=== PATIENT | male | born 1955 | race Caucasian/White ===

== ENCOUNTER 2020-07-24 12:58 | Inpatient (IN) | payer OTHER, MEDICAID ==
[~2020-07-24] VITALS: Ht 162.6 cm; Wt 77.6 kg
[~2020-07-24 12:58] MED LIST: ASPI-1497 PO; CLOP75TA33 PO; LISI20TA31 PO; PROVASTATIN PO
[2020-07-24] MEDS ORDERED: ROSU20TA2 PO (13:13)
[2020-07-24] MEDS ORDERED: TAMS-11 PO (13:13)
[2020-07-24] MEDS ORDERED: OLME1TAB92 PO (13:13)
[2020-07-24] MEDS ORDERED: XIGDUO (13:13)
[2020-07-24] MEDS ORDERED: insulin (13:13)
[2020-07-24 14:08] LABS: BASOPHILS % 0.2 % (0.0-2.0); EOSINOPHILS % 0.7 % (0.0-5.0); HEMATOCRIT. 43.7 % (42.0-52.0); HEMOGLOBIN. 14.8 g/dL (14.0-18.0); MEAN CORPUSCULAR HEMOGLOBIN 31.3 pg (28.0-32.0); MEAN CORPUSCULAR VOLUME 92.1 fL (80.0-94.0); MEAN PLATELET VOLUME 7.6 fl (7.4-10.4); MONOCYTES % 4.2 % (2.0-8.0); NEUTROPHILS % 84.9 % (40.0-76.0); PLATELET 202 x1000/uL (130-400); RED BLOOD CELL COUNT 4.74 mill/uL (4.7-6.1); RED CELL DISTRIBUTION WIDTH 13.1 % (11.6-14.6)
[2020-07-24 14:15] LABS: CHLORIDE 107 mEq/L (98-107)
[2020-07-24] MEDS ORDERED: MECLIZINE 25MG TABLET PO ONE (14:15)
[2020-07-24] MEDS ORDERED: SODIUM CHLORIDE 0.9% 1,000 ML IV ONE (14:15)
[2020-07-24 14:19] LABS: ETHANOL BLOOD < 10 mg/dL
[2020-07-24] MEDS ORDERED: MECL-159 MT (15:18)
[2020-07-24] MEDS ORDERED: ASPIRIN 325MG EC TABLET PO ONE (22:15)
[2020-07-25] VITALS (7 sets, daily range): BP systolic 86–128; BP diastolic 52–74
[2020-07-25] MEDS ORDERED: CLONIDINE 0.1MG TABLET PO PRN (02:30)
[2020-07-25] MEDS ORDERED: DEXTROSE 50% WATER 50ML SYRINGE IV PRN (02:30)
[2020-07-25] MEDS ORDERED: ACETAMINOPHEN 325MG TABLET PO PRN (02:30)
[2020-07-25] MEDS ORDERED: NON FORMULARY PATIENT HOME MED XX SCH (02:30)
[2020-07-25] MEDS: BLOOD SUGAR DIAGNOSTIC STRIP TEST SCH ×4 (07:09→21:04)
[2020-07-25 07:27] LABS: BASOPHILS % 0.2 % (0.0-2.0); EOSINOPHILS % 2.3 % (0.0-5.0); HEMATOCRIT. 41.7 % (42.0-52.0); LYMPHOCYTES % 31.5 % (20.0-50.0); MEAN CORPUSCULAR HEMOGLOBIN 31.3 pg (28.0-32.0); MEAN CORPUSCULAR VOLUME 93.2 fL (80.0-94.0); MEAN PLATELET VOLUME 7.5 fl (7.4-10.4); PLATELET 190 x1000/uL (130-400); RED BLOOD CELL COUNT 4.48 mill/uL (4.7-6.1); RED CELL DISTRIBUTION WIDTH 13.6 % (11.6-14.6)
[2020-07-25] MEDS: INSULIN LISPRO 100 UNITS/ML SUBCUT SCH ×4 (07:50→21:19)
[2020-07-25 07:51] LABS: CHLORIDE 107 mEq/L (98-107)
[2020-07-25] MEDS ORDERED: *PATIENT'S OWN MEDICATION STORAGE XX SCH (08:00)
[2020-07-25 08:07] LABS: LDL CHOLESTEROL 65 mg/dL (5-100)
[2020-07-25 08:09] LABS: T4 FREE 0.94 ng/dL (0.76-1.46)
[2020-07-25 08:10] LABS: HDL CHOLESTEROL 38 mg/dL (40-59)
[2020-07-25] MEDS: ASPIRIN 81MG EC TABLET PO SCH (08:54)
[2020-07-25] MEDS: TAMSULOSIN HCL 0.4MG SR CAPSULE PO SCH (08:55)
[2020-07-25] MEDS ORDERED: HYDROCHLOROTHIAZIDE 25MG TABLET PO SCH (09:00)
[2020-07-25] MEDS ORDERED: LOSARTAN POTASSIUM 100 MG TABLET PO SCH (09:00)
[2020-07-25] MEDS ORDERED: MECLIZINE 12.5MG TABLET PO PRN (11:15)
[2020-07-25 12:25] LABS: D-DIMER 0.2 mg/L FEU (<0.50); INR 1.1; PROTHROMBIN TIME 11.4 sec (9.6-11.0)
[2020-07-25] MEDS: LORATADINE 10MG TABLET PO SCH (12:47)
[2020-07-25 13:44] LABS: CLARITY URINE CLEAR (CLEAR); COLOR URINE YELLOW (YELLOW); KETONES URINE NEGATIVE (NEGATIVE); LEUKOCYTE ESTERASE URINE NEGATIVE (NEGATIVE); NITRITE URINE NEGATIVE (NEGATIVE); OCCULT BLOOD URINE NEGATIVE (NEGATIVE); PH URINE 5.5 (4.5-8.0); PROTEIN URINE NEGATIVE (NEGATIVE); SPECIFIC GRAVITY URINE 1.042 (1.005-1.030)
[2020-07-25 13:53] LABS: *AMPHETAMINES SCREEN URINE NEGATIVE (NEGATIVE); *BARBITURATES SCREEN URINE NEGATIVE (NEGATIVE); *BENZODIAZEPINES SCREEN URINE NEGATIVE (NEGATIVE); *COCAINE SCREEN URINE NEGATIVE (NEGATIVE)
[2020-07-25 13:54] LABS: CANNABINOID URINE SCREEN NEGATIVE (NEGATIVE); METHADONE URINE SCREEN NEGATIVE (NEGATIVE); OPIATES URINE SCREEN NEGATIVE (NEGATIVE); PHENCYCLIDINE URINE SCREEN NEGATIVE (NEGATIVE)
[2020-07-25] MEDS ORDERED: IPRATROPIUM/ALBUTEROL 0.5-3(2.5)MG/3ML NEB HHN PRN (16:15)
[2020-07-25] MEDS ORDERED: BISACODYL 10MG SUPP PR PRN (16:15)
[2020-07-25] MEDS ORDERED: LORAZEPAM 2MG/ML CPJ IV PRN (16:15)
[2020-07-25] MEDS ORDERED: HYDRALAZINE 20MG/ML VIAL IV PRN (16:15)
[2020-07-25] MEDS ORDERED: HYDROCODONE/ACETAMINOPHEN 5/325MG TABLET PO PRN (16:15)
[2020-07-25] MEDS ORDERED: ONDANSETRON HCL 4MG/2ML INJ IV PRN (16:15)
[2020-07-25] MEDS ORDERED: DIPHENHYDRAMINE 50MG/ML VIAL IV PRN (16:15)
[2020-07-25] MEDS: SODIUM CHLORIDE 0.45% 1,000 ML IV SCH (17:29)
[2020-07-25] MEDS: ENOXAPARIN 40MG/0.4ML SYR SUBCUT SCH (17:29)
[2020-07-25] MEDS ORDERED: FAMOTIDINE 20MG TABLET PO SCH (21:00)
[2020-07-25] MEDS ORDERED: LACTULOSE 20G/30ML UDC PO PRN (21:00)
[2020-07-25] MEDS ORDERED: ATORVASTATIN CALCIUM 40MG TABLET PO SCH (21:00)
[2020-07-25] MEDS ORDERED: TEMAZEPAM 15MG CAPSULE PO PRN (21:00)
[2020-07-25] MEDS: AMOXICILLIN/POTASSIUM CLAVULANATE 500/125MG TAB PO SCH (21:20)
[2020-07-25] MEDS: FLUTICASONE PROPIONATE 50MCG/SPRAY BOTTLE BOTHNSTRLS SCH (21:20)
[2020-07-26] VITALS: BP 138/63
[2020-07-26] MEDS: SODIUM CHLORIDE 0.45% 1,000 ML IV SCH (06:15)
[2020-07-26] MEDS: AMOXICILLIN/POTASSIUM CLAVULANATE 500/125MG TAB PO SCH ×2 (06:16→15:09)
[2020-07-26] MEDS: BLOOD SUGAR DIAGNOSTIC STRIP TEST SCH ×3 (06:21→17:58)
[2020-07-26 07:44] VITALS: BP_SYST 107; BP_SYST 112; BP_SYST 179; BP_DIAS 56; BP_DIAS 66; BP_DIAS 68
[2020-07-26 07:50] LABS: HEMATOCRIT 39.7 % (42.0-52.0); HEMOGLOBIN 13.6 g/dL (14.0-18.0); MEAN CORPUSCULAR HEMOGLOBIN 31.8 pg (28.0-32.0); MEAN CORPUSCULAR VOLUME 93.1 fL (80.0-94.0); PLATELET 177 x1000/uL (130-400); RED BLOOD CELL COUNT 4.26 mill/uL (4.7-6.1); RED CELL DISTRIBUTION WIDTH 13.3 % (11.6-14.6)
[2020-07-26] MEDS: INSULIN LISPRO 100 UNITS/ML SUBCUT SCH ×3 (07:50→17:50)
[2020-07-26 07:57] LABS: CHLORIDE 106 mEq/L (98-107)
[2020-07-26] MEDS ORDERED: LOSARTAN POTASSIUM 50 MG TABLET PO SCH (09:00)
[2020-07-26] MEDS: ASPIRIN 81MG EC TABLET PO SCH (10:06)
[2020-07-26] MEDS: TAMSULOSIN HCL 0.4MG SR CAPSULE PO SCH (10:06)
[2020-07-26] MEDS: LORATADINE 10MG TABLET PO SCH (10:07)
[2020-07-26] MEDS: FLUTICASONE PROPIONATE 50MCG/SPRAY BOTTLE BOTHNSTRLS SCH (10:49)
[2020-07-26 11:08] VITALS: BP 119/65
[2020-07-26] MEDS ORDERED: CLAR10 MT (14:29)
[2020-07-26] MEDS ORDERED: MECL-159 MT (14:29)
[2020-07-26] MEDS ORDERED: AMOX1TAB15 MT (14:29)
[2020-07-26] MEDS ORDERED: FLUT9.9S BOTHNSTRLS (14:29)
[2020-07-26 15:30] VITALS: BP_SYST 103; BP_SYST 109; BP_SYST 93; BP_DIAS 63; BP_DIAS 64; BP_DIAS 66
[2020-07-26 15:43] VITALS: BP 112/66
[2020-07-26] MEDS ORDERED: AMLODIPINE 2.5MG TABLET PO SCH (17:00)
[2020-07-26] MEDS: ENOXAPARIN 40MG/0.4ML SYR SUBCUT SCH (17:00)
[2020-07-26 18:06] VITALS: BP 112/66
== END 2020-07-26 19:04 | disposition home or self-care (01) | DRG 74 ==
LOC: ER 12:58 → 6WST 22:05 → EDBEDREQTM 22:16 → EDBEDREQ 22:16 → ENRESERV 22:50
PROVIDERS: ADMIT Internal Medicine; ATTEND Internal Medicine
DX: G90.9 Disorder of the autonomic nervous system, unspecified (principal); J32.0 Chronic maxillary sinusitis; I95.1 Orthostatic hypotension; E11.65 Type 2 diabetes mellitus with hyperglycemia; E78.5 Hyperlipidemia, unspecified; I10 Essential (primary) hypertension; N40.0 Benign prostatic hyperplasia without lower urinary tract symptoms; I25.10 Atherosclerotic heart disease of native coronary artery without angina pectoris; Z79.82 Long term (current) use of aspirin; Z79.899 Other long term (current) drug therapy; Z87.891 Personal history of nicotine dependence; Z95.5 Presence of coronary angioplasty implant and graft; Z79.02 Long term (current) use of antithrombotics/antiplatelets; H83.09 Labyrinthitis, unspecified ear; R42 Dizziness and giddiness
CPT/HCPCS: 36415; 70551; 71045; 80048; 80053; 80061; 80305; 80320; 81003; 82962; 83036; 83880; 84153; 84439; 84443; 84484; 85025; 85027; 85379; 86850; 86900; 93005; 93306; 93880; 93970; 97162; 99285; J1650; J1815; J7030; J8597; G0103; G0480

== ENCOUNTER 2021-12-08 12:25 | Emergency (ER) | payer OTHER, MEDICAID ==
[~2021-12-08] VITALS: Ht 175.3 cm; Wt 87.0 kg
[~2021-12-08 12:25] MED LIST changes: +AMOX1TAB15 MT; +CLAR10 MT; -CLOP75TA33 PO; +FLUT9.9S BOTHNSTRLS; -LISI20TA31 PO; +MECL-159 MT; -PROVASTATIN PO; +ROSU20TA2 PO; +XIGDUO; +insulin
[2021-12-08 12:28] VITALS: BP 116/80
[2021-12-08] MEDS ORDERED: P50 MT (12:41)
[2021-12-08] MEDS ORDERED: DIPH25CA83 MT (12:41)
== END 2021-12-08 13:05 | disposition home or self-care (01) ==
LOC: ER 12:25
DX: T78.49XA Other allergy, initial encounter (principal); T63.441A Toxic effect of venom of bees, accidental (unintentional), initial encounter; E11.9 Type 2 diabetes mellitus without complications; I11.9 Hypertensive heart disease without heart failure; Y92.9 Unspecified place or not applicable; Z98.62 Peripheral vascular angioplasty status
CPT/HCPCS: 99283